=== PATIENT | female | born 1970 | race Caucasian/White ===

== ENCOUNTER 2021-11-20 10:16 | Emergency (ER) | payer MEDICAID ==
[~2021-11-20] VITALS: Ht 165.1 cm; Wt 77.0 kg
[2021-11-20 10:37] VITALS: BP 127/60
[2021-11-20] MEDS ORDERED: IPRATROPIUM BROMIDE (0.02%) 0.5MG/2.5ML NEB HHN STA (11:07)
[2021-11-20] MEDS ORDERED: PREDNISONE 20MG TABLET PO STA (11:07)
[2021-11-20] MEDS ORDERED: ALBUTEROL (0.083%) 2.5MG/3ML NEB HHN STA (11:07)
[2021-11-20] MEDS ORDERED: ALBU6.7H9 INH (12:34)
[2021-11-20] MEDS ORDERED: P50 PO (12:34)
== END 2021-11-20 12:55 | disposition home or self-care (01) ==
LOC: ER 11:11
DX: J45.901 Unspecified asthma with (acute) exacerbation (principal)
CPT/HCPCS: 93005; 94640; 99283; J7512; Z7610